=== PATIENT | male | born 1955 | race Caucasian/White ===

== ENCOUNTER 2016-04-04 06:40 | Day surgery (SDC) | payer BC ==
[2016-04-04] MEDS ORDERED: PROPOFOL 20 ML ONE ×2 (07:43)
[2016-04-04 07:46] VITALS: BMI 26.4
[2016-04-04] MEDS ORDERED: GLYCOPYRROLATE 0.2 MG/1 ML VIAL ONE (07:46)
[2016-04-04] MEDS ORDERED: ATROPINE SULFATE 1 MG/10 ML DISP.SYRIN ONE (07:46)
[2016-04-04 08:47] VITALS: TEMP 97.4
[2016-04-04 11:35] VITALS: BP 108/78; PULSE 56
--- NOTE | 2016-04-05 13:11 | PATH ---
Surgical Pathology Report Patient Name: KERRI UMANZOR [facility]. Rec. #: [id number] /Age/Gender: 1955 (Age: 60) / M Account: [id number] Location: U-ENDOSCOPY Taken: 04/04/2016 Received: 04/04/2016 Reported: 04/05/2016 Physicians: Elin Valadez M.D. Specimen(s) Received A: RECTAL POLYP BIOPSY B: BX PROMINENT FOLD CECUM R/O POLYP C: BX PROXIMAL TRANSVERSE COLON POLYP Clinical History Family history of colon cancer, polyp surveillance Diverticulosis, hemorrhoids, polyps Final Diagnosis A. RECTUM, POLYP, BIOPSY: HYPERPLASTIC POLYP. B. COLON, CECUM, PROMINENT FOLD, BIOPSY: POLYPOID FRAGMENT OF COLONIC MUCOSA WITH MILD ACTIVE INFLAMMATION AND FOCAL SURFACE HYPERPLASTIC CHANGE SUGGESTIVE OF INFLAMMATORY POLYP. C. COLON, PROXIMAL TRANSVERSE, POLYP, BIOPSY: FRAGMENTS OF TUBULAR ADENOMA. Electronically Signed Hema Eduardo M.D. Gross Description A. Received in formalin, labeled "rectal polyp biopsy" is a van, irregular portion of soft tissue measuring 0.3 cm in greatest dimension. The specimen is submitted in toto in one cassette. B. Received in formalin, labeled "biopsy prominent fold in cecum" are 3 van, irregular portions of soft tissue ranging from 0.1-0.4 cm in greatest dimension. The specimens are submitted in toto in one cassette. C. Received in formalin, labeled "biopsy proximal transverse colon" are 3 van, irregular portions of soft tissue ranging from 0.2-0.4 cm in greatest dimension. The specimens are submitted in toto in one cassette. DL/04/04/2016 saudi04/04/2016
== END 2016-04-04 10:00 | disposition home or self-care (01) ==
LOC: JASU-ENDO 06:40
PROVIDERS: ATTEND Internal Medicine Gastroenterology
PROC: 0DBL8ZX Excision of Transverse Colon, Via Natural or Artificial Opening Endoscopic, Diagnostic (ICD-10-PCS; 2016-04-04)
PROC: 0DBP8ZX Excision of Rectum, Via Natural or Artificial Opening Endoscopic, Diagnostic (ICD-10-PCS; 2016-04-04)
PROC: 0DBH8ZX Excision of Cecum, Via Natural or Artificial Opening Endoscopic, Diagnostic (ICD-10-PCS; principal; 2016-04-04 08:00)
DX: Z86.010 Personal history of colon polyps (principal); K62.1 Rectal polyp; D12.3 Benign neoplasm of transverse colon; K64.8 Other hemorrhoids; K57.30 Diverticulosis of large intestine without perforation or abscess without bleeding
CPT/HCPCS: 88305-TC